=== PATIENT | female | born 1950 | race Caucasian/White ===

== ENCOUNTER → 2016-11-19 | Outpatient (CLI) | payer OTHER ==
[~2016-11-19] MED LIST: GADOBUTROL 10 ML VIAL IVP ONE
[2016-11-19 09:49] LABS: CREATININE 0.9 mg/dL (0.6-1.0); GLOMERULAR FILTRATION RATE > 60
--- NOTE | 2016-11-19 12:08 | MR ---
MRI of the Brain (Without and With Contrast) History: Paresthesias in a 66-year-old female; followup abnormal signal intensity seen within the cer vical spinal cord on the unenhanced MRI of the cervical spine performed November 02, 2016. Contrast: 6 mL intravenous Gadavist, without complication. This contrast dose was employed for evalua tion of the brain and cervical spine. Technique: Sagittal T1 and postcontrast FLAIR imaging through the whole brain. Axial T1 (pre- and pos tcontrast), fast T2 2nd echo, susceptibility weighted, FLAIR and diffusion imaging through the whole brain. Coronal T1 post contrast through the whole brain. Findings: There are multiple isovolumic, bilateral, periventricular and subcortical white matter foci of T2-weighted hyperintensity consistent with a multifocal demyelinating process such as multiple sc lerosis. The diffusion-weighted sequence is negative for findings of acute ischemia. There is no evid ence for hemorrhage. None of the lesions enhance after gadolinium administration. No lesions are iden tified in the posterior fossa. Ventricles and midline structures are normal in appearance for a patient of this age. Vascular struct ures appear normal. The paranasal sinuses are clear. Impression: Findings consistent with a multifocal demyelinating process such as multiple sclerosis a re noted.
--- NOTE | 2016-11-19 17:26 | MR ---
MRI of the Cervical Spine (Without and With Contrast) Contrast: 6 mL Gadavist gadolinium contrast without complication. This dose was employed for evaluati on of the head and cervical spine. History: Paresthesias in a 66-year-old female; follow-up cervical spine abnormalities noted on the no ncontrast cervical MRI study dated November 02, 2016. Technique: Sagittal: pre- and postcontrast T1 and FSE T2; Axial: pre- and postcontrast T1, fast T2 s econd-echo with fat suppression and thin axial gradient images are performed through the neck. Findings: The craniocervical junction is normal. Cervical alignment is anatomic.The cervical neural c anal is congenitally normal in size. Vertebral bodies maintain normal bone marrow signal. Disk space s maintain normal height and hydration. Again noted is diffuse abnormal signal intensity throughout the cervical cord extending from the C2 l evel caudally to the C7 level. The abnormality is nonexpansile and there is no cord compression or ca nal stenosis. No significant enhancement of the abnormal regions are seen. There is no disk herniatio n, canal stenosis, or nerve root impingement. Impression: Diffuse isovolumic noncontrast-enhancing abnormal signal intensity within the cervical co rd would be consistent with a demyelinating process such as multiple sclerosis. This would correlate well with findings on the MRI of the brain.
== END ==
LOC: FIMAGING 08:49
PROVIDERS: ATTEND Psychiatry & Neurology Neurology
DX: G95.9 Disease of spinal cord, unspecified (principal)
CPT/HCPCS: A9585

== ENCOUNTER → 2017-10-24 | Outpatient (CLI) | payer OTHER | LOC: BMCIMAGING 14:07 | PROVIDERS: ATTEND Internal Medicine | DX: Z12.31 Encounter for screening mammogram for malignant neoplasm of breast (principal); Z13.820 Encounter for screening for osteoporosis; M85.89 Other specified disorders of bone density and structure, multiple sites | CPT/HCPCS: G0202 ==

== ENCOUNTER → 2017-10-31 | Outpatient (CLI) | payer OTHER | LOC: FIMAGING 15:43 | DX: G35 Multiple sclerosis (principal) ==

== ENCOUNTER → 2018-09-19 | Outpatient (CLI) | payer OTHER | LOC: FIMAGING 09:27 | PROVIDERS: ATTEND Obstetrics & Gynecology | DX: N95.0 Postmenopausal bleeding (principal) ==

== ENCOUNTER → 2018-09-22 | Outpatient (CLI) | payer OTHER | LOC: FIMAGING 12:13 | DX: G35 Multiple sclerosis (principal) ==

== ENCOUNTER → 2018-11-02 | Outpatient (CLI) | payer OTHER | LOC: FIMAGING 15:09 | PROVIDERS: ATTEND Physical Medicine & Rehabilitation | DX: Z13.828 Encounter for screening for other musculoskeletal disorder (principal) ==